=== PATIENT | female | born 1935 | race Caucasian/White ===

== ENCOUNTER 2017-06-20 08:00 | Outpatient (CLI) | payer MEDICARE, OTHER ==
[2017-06-20] MEDS ORDERED: Iopamidol 370 76% 100 ML VIAL ONE (15:49)
== END 2017-06-20 08:01 | disposition home or self-care (01) ==
LOC: BICCT 08:00
PROVIDERS: ATTEND Internal Medicine Hematology & Oncology
DX: C85.90 Non-Hodgkin lymphoma, unspecified, unspecified site (principal)
CPT/HCPCS: 74160; 80053; 82248; 83615; 84100; 84550

== ENCOUNTER 2018-06-02 09:00 | Outpatient (CLI) | payer MEDICARE, OTHER ==
--- NOTE | 2018-06-02 14:25 | CT ---
CT ABDOMEN AND PELVIS WITH IV CONTRAST: DATE: 06/02/2018. HISTORY: Nodular lymphoma, abdominal lymph nodes. Followup evaluation. The patient has a history of prior ch emotherapy treatment. COMPARISON: 06/20/2017, 01/25/2017, 04/19/2011. FINDINGS: Lung bases are clear. The hypodense hepatic lesions within the lateral segment left hepatic lobe and posterior segment of t he right hepatic lobe are again seen and stable compared to prior study as well as study in 2010. Al so again noted is a hypodense left renal lesion most compatible with a cyst which is also stable. Hepatic and splenic granulomata are again seen. There are stable calcifications seen in the region of the uncinate process of the pancreas which may be related to sequelae of prior pancreatitis. In addition, there is a stable subcentimeter hypodense lesion within the anterior aspect body of the pancreas which was present on the prior study in 2016 and probably present on the study in 2010. In addition, there is a smaller subcentimeter hypodense l esion in the tail of the pancreas which was not well seen on the prior exams due to slide selection, but was probably present on the study on the study on 06/04/2016. The bilateral adrenal glands, the urinary bladder, and uterus demonstrate a normal CT appearance for the patient's age. There is a hypodense cystic-appearing structure within the right aspect of the pelvis. This cystic l esion was also present on the study of 06/04/2016. This measures 3.4 cm x 3.1 cm and measured 3.5 cm x 2.7 cm on the prior study in 2015. Vascular calcifications in the abdominal aorta and involving the iliac arteries. No enlarged lymph nodes are seen within the abdomen or pelvis. There is minimal nonspecific inflamma tory stranding seen in the mesentery also seen on prior studies and is overall nonspecific. However, there is a larger area of soft tissue density/draining within the lower aspect of the central mesent kurtis which had a similar appearance to a prior study in 2016; although, the previously noted mass/enla rged lymph node within the mesentery on that examination is not visualized. There is colonic diverticulosis. Degenerative changes are again present in the spine. IMPRESSION: 1. Cystic right adnexal lesion also seen on prior studies. 2. Stable hypodense hepatic and left renal lesions likely related to cysts. 3. No evidence of lymphadenopathy. There is minimal nonspecific stranding seen within the central m esentery with a larger area of mild stranding seen to the right of midline within the central mesente ry at the level of the lower abdomen/upper pelvis. A similar finding was seen on the study of 2016, but there is no associated mass or enlarged lymph node in this region. Followup evaluation is sugges aracely. 4. The remainder of the findings are as described above. POS: CARINE
== END 2018-06-02 09:01 | disposition home or self-care (01) ==
LOC: BICCT 09:00
PROVIDERS: ATTEND Internal Medicine Hematology & Oncology
DX: C85.90 Non-Hodgkin lymphoma, unspecified, unspecified site (principal); N83.8 Other noninflammatory disorders of ovary, fallopian tube and broad ligament; N28.89 Other specified disorders of kidney and ureter; K76.89 Other specified diseases of liver
CPT/HCPCS: 74177; 82565

== ENCOUNTER 2019-05-22 08:58 | Outpatient (CLI) | payer MEDICARE, OTHER ==
[2019-05-22] MEDS ORDERED: Iopamidol-370 76% 500 ML 1 ML ONE (13:39)
--- NOTE | 2019-05-22 13:59 | CT ---
CT ABDOMEN AND PELVIS PERFORMED WITH IV CONTRAST ENHANCEMENT: Date: 05/22/19 HISTORY: Lymphoma follow-up. COMPARISON: 06/02/18 exam. FINDINGS: The lung bases are clear of any infiltrative process. The liver once again shows hypodensities most c ompatible with cysts, stable. Splenic granulomas are noted. Pancreas is atrophic. Small cystic lesion in the pancreatic tail which may represent a focal dilatation of the duct, subcentimeter in size, bu t stable. Gallbladder region is unremarkable. Right and left adrenal glands, and right and left kidneys are normal in appearance. Stable left renal cyst is noted. There is no significant periaortic or mesenteric adenopathy. No adenopathy in the por german region or gastrohepatic ligament. The fat stranding within the mesenteric fat is stable. CT of pelvis performed with contrast. No adenopathy, mass, or free fluid. IMPRESSION: 1. Stable overall exam. 2. No significant lymphadenopathy within the abdomen or pelvis. 3. Coronary artery calcifications. 4. Stable fat stranding within the mesenteric fat. POS: CARINE
== END 2019-05-22 08:59 | disposition home or self-care (01) ==
LOC: BICCT 08:58
PROVIDERS: ATTEND Internal Medicine Hematology & Oncology
DX: C85.93 Non-Hodgkin lymphoma, unspecified, intra-abdominal lymph nodes (principal); I25.10 Atherosclerotic heart disease of native coronary artery without angina pectoris
CPT/HCPCS: 74177; 82565; Q9967

== ENCOUNTER 2020-05-22 08:53 | Outpatient (CLI) | payer MEDICARE, OTHER ==
--- NOTE | 2020-05-22 10:03 | CT ---
CT Abdomen Pelvis W Con: 05/22/2020 9:15 AM CLINICAL INFORMATION: Nodular lymphoma COMPARISON: 05/22/2019, 06/02/2018, 06/04/2016 TECHNIQUE: Multiple contiguous axial images were obtained and a CT of the abdomen and pelvis with IV contrast. Oral contrast was administered. Coronal and sagittal reformats were performed. FINDINGS: Lower Chest: within normal limits. Abdomen: Liver: Stable hypodensities measuring up to 1.8 cm in size likely represent cysts. Bile Ducts: Normal caliber. Gallbladder: Stable appearance. It is likely small and contracted. Pancreas: Stable 1.1 cm cystic lesion in the tail of the pancreas. Calcifications in the pancreatic h ead may be from chronic pancreatitis. Spleen: Scattered calcified granulomas. Adrenals: within normal limits. Kidneys: Bilateral renal cysts measuring up to 2.3 cm in size. Pelvis: Reproductive Organs: There is a stable 2.9 cm mass in the right aspect of the pelvis which may repres ent the patient's right ovary. The uterus is atrophic. Ureters: within normal limits. Bladder: within normal limits. Peritoneum: No ascites or free air, no fluid collection. Bowel: Normal caliber. Mesentery and Retroperitoneum: No enlarged mesenteric or retroperitoneal lymph nodes. Vessels: Atherosclerotic calcifications. Abdominal Wall: within normal limits. Bones: Degenerative changes in the spine. IMPRESSION: 1. There is a hypodensity in the right aspect of the pelvis that may represent patient's right ovary. Residual malignancy cannot be entirely excluded. 2. Pancreatic tail cystic lesion. This developed on the exam in 2017 and has remained stable since . This could represent a pseudocyst or a cystic pancreatic neoplasm. An MRI of the abdomen without and with contrast per pancreatic mass protocol is recommended. 3. Hepatic cysts 4. Renal cysts
== END 2020-05-22 08:54 | disposition home or self-care (01) ==
LOC: BICCT 08:53
PROVIDERS: ATTEND Internal Medicine Hematology & Oncology
DX: C82.03 Follicular lymphoma grade I, intra-abdominal lymph nodes (principal); K86.2 Cyst of pancreas; K76.89 Other specified diseases of liver; N28.1 Cyst of kidney, acquired
CPT/HCPCS: 74177; 82565